=== PATIENT | male | born 1945 | race Caucasian/White ===

== ENCOUNTER 2020-11-20 10:38 | Outpatient (CLI) | payer MEDICARE | END 2020-11-20 10:39 | disposition home or self-care (01) | LOC: BICRAD 10:38 | PROVIDERS: ATTEND Family Medicine | DX: M54.5 Low back pain (principal); M47.816 Spondylosis without myelopathy or radiculopathy, lumbar region; R19.00 Intra-abdominal and pelvic swelling, mass and lump, unspecified site | CPT/HCPCS: 72100 ==

== ENCOUNTER 2020-12-31 08:37 | Outpatient (CLI) | payer MEDICARE ==
[2020-12-31 10:08] LABS: Hemoglobin 14.2 g/dL (13.5-17.5); Mean Corpuscular HGB CONC 33.9 g/dL (32.0-36.0); Mean Corpuscular Hemoglobin 30.9 pg (27.0-33.0); Mean Corpuscular Volume 91.3 fl (81.2-95.1); Mean Platelet Volume 9.1 fl (7.4-10.4); Platelet Count 345 10x3/uL (150-450); RBC Distribution Width 11.6 % (11.5-14.5); Red Blood Cell (RBC) Count 4.59 10x6/uL (4.32-5.72); White Blood Cell (WBC) Count 10.7 10x3/uL (3.5-10.5)
[2020-12-31 11:09] LABS: Anion Gap 14 mmol/L (10-20); BUN (Urea Nitrogen) 21 mg/dL (8.4-25.7); Calc. Creatinine Clearance 0 mL/min (70-130); Carbon Dioxide 24 mmol/L (23-31); Chloride 106 mmol/L (98-107); Glucose 177 mg/dL (83-110); Potassium 4.9 mmol/L (3.5-5.1); Sodium 139 mmol/L (136-145)
[2021-01-01 03:23] LABS: SARS-CoV-2 NAA Rapid Test Not Detected (NotDetected)
== END 2020-12-31 08:38 | disposition home or self-care (01) ==
LOC: LABBT 08:37
PROVIDERS: ATTEND Thoracic Surgery (Cardiothoracic Vascular Surgery)
DX: Z01.818 Encounter for other preprocedural examination (principal); I72.2 Aneurysm of renal artery; Z20.822 Contact with and (suspected) exposure to COVID-19
CPT/HCPCS: 80048; 85027; U0003; U0005; 87635; U0002

== ENCOUNTER 2021-01-05 05:58 | Observation (INO) | payer MEDICARE ==
[2021-01-01 11:51] VITALS: BMI 39.0
[2021-01-05] MEDS ORDERED: Lidocaine 1% (PF) 30 ML VIAL ONE (06:30)
[2021-01-05] MEDS ORDERED: Fentanyl 100 MCG/2 ML VIAL ONE (07:12)
[2021-01-05] MEDS ORDERED: Midazolam HCl 2 mg/2 ml Vial ONE (07:13)
[2021-01-05] MEDS ORDERED: Iopamidol 370 76% 50 ML VIAL FS ONE (08:28)
[2021-01-05] MEDS ORDERED: Fentanyl 100 MCG/2 ML VIAL SLOW IVP PRN (08:48)
[2021-01-05] MEDS ORDERED: traMADol HCl 50 MG TAB PO PRN (08:48)
[2021-01-05] MEDS ORDERED: Acetaminophen 325 MG TAB PO PRN (08:49)
[2021-01-05] MEDS ORDERED: Lactated Ringer's 1,000 ML IV SCH ×2 (09:00→20:00)
[2021-01-05] MEDS: Metoprolol Tartrate 25 MG TAB PO SCH ×2 (10:13→21:35)
[2021-01-06 05:43] LABS: Anion Gap 14 mmol/L (10-20); BUN (Urea Nitrogen) 17 mg/dL (8.4-25.7); Calc. Creatinine Clearance 81 mL/min (70-130); Calcium 8.5 mg/dL (7.8-10.44); Carbon Dioxide 20 mmol/L (23-31); Chloride 105 mmol/L (98-107); Glucose 151 mg/dL (83-110); Potassium 4.2 mmol/L (3.5-5.1); Sodium 135 mmol/L (136-145)
[2021-01-06 08:31] VITALS: BP 131/104; TEMP 98.2
[2021-01-06] MEDS: Metoprolol Tartrate 25 MG TAB PO SCH (09:00)
== END 2021-01-06 10:05 | disposition home or self-care (01) ==
LOC: SDC 05:58 → 2SW 08:27
PROVIDERS: ADMIT Thoracic Surgery (Cardiothoracic Vascular Surgery); ATTEND Thoracic Surgery (Cardiothoracic Vascular Surgery)
PROC: 04VA3DZ Restriction of Left Renal Artery with Intraluminal Device, Percutaneous Approach (ICD-10-PCS; principal; 2021-01-05)
DX: I72.2 Aneurysm of renal artery (principal); E11.9 Type 2 diabetes mellitus without complications; I10 Essential (primary) hypertension; E78.5 Hyperlipidemia, unspecified; E66.01 Morbid (severe) obesity due to excess calories; Z79.82 Long term (current) use of aspirin; Z79.84 Long term (current) use of oral hypoglycemic drugs; Z79.899 Other long term (current) drug therapy; Z68.39 Body mass index [BMI] 39.0-39.9, adult
CPT/HCPCS: 36245; 36251; 36415; 36416; 61626; 76942; 80048; 99152; 99153; G0378; J2001; J2250; J3010; Q9967

== ENCOUNTER 2022-04-18 07:28 | Outpatient (CLI) | payer OTHER | END 2022-04-18 07:29 | disposition home or self-care (01) | LOC: ULT 07:28 | PROVIDERS: ATTEND Internal Medicine Nephrology | DX: I12.9 Hypertensive chronic kidney disease with stage 1 through stage 4 chronic kidney disease, or unspecified chronic kidney disease (principal); N18.30 Chronic kidney disease, stage 3 unspecified; N28.1 Cyst of kidney, acquired | CPT/HCPCS: 36415; 76770; 80048; 81003; 82040; 82306; 82550; 82570; 83735; 83970; 84100; 84156; 85025; 93975 ==